=== PATIENT | female | born 1975 | race Caucasian/White ===

== ENCOUNTER 2017-07-10 20:35 | Emergency (ER) | payer BC ==
[2017-07-10 20:42] VITALS: BP 143/69; PULSE 79; RESP 16; TEMP 97.8
--- NOTE | 2017-07-10 21:11 | XR ---
EXAMINATION TYPE: XR foot complete LT DATE OF EXAM: 07/10/2017 CLINICAL HISTORY: Left foot pain worse in the second digit TECHNIQUE: Frontal, lateral, and oblique images of the left foot are obtained. COMPARISON: None FINDINGS: There is no acute fracture/dislocation evident in the left foot. The joint spaces in the left foot appear within normal limits. The overlying soft tissue appears unremarkable. IMPRESSION: There is no acute fracture or dislocation in the left foot.
--- NOTE | 2017-07-10 21:15 | ED ---
General Adult HPI - General Chief complaint: Extremity Injury, Lower Stated complaint: LEFT FOOT INJURY Time Seen by Provider: 07/10/17 20:46 Source: patient, RN notes reviewed Mode of arrival: ambulatory Limitations: no limitations - History of Present Illness Initial comments: 42-year-old female presents to the emergency department for a chief complaint of left foot pain times one week. Patient states she does not remember any injuries but states the second digit of her left foot hurts. Patient denies any history of gout or rheumatoid arthritis. Patient denies any fevers at home. Patient states this has not happened before. Patient has not seen her primary care provider for this. Patient states it is painful to press on. It is also somewhat painful to walk with. Patient has never injured that toe before. Patient has no other complaints at this time including shortness of breath, chest pain, abdominal pain, nausea or vomiting, headache, or visual changes. - Related Data Allergies Allergy/AdvReac Type Severity Reaction Status Date / Time No Known Allergies Allergy Verified 07/10/17 20:42 Review of Systems ROS Statement: Those systems with pertinent positive or pertinent negative responses have been documented in the HPI. ROS Other: All systems not noted in ROS Statement are negative. Past Medical History Past Medical History: No Reported History History of Any Multi-Drug Resistant Organisms: None Reported Additional Past Surgical History / Comment(s): endometrial ablation. left knee arthroscopy. Past Psychological History: No Psychological Hx Reported Smoking Status: Never smoker Past Alcohol Use History: None Reported Past Drug Use History: None Reported General Exam Limitations: no limitations General appearance: alert, in no apparent distress Head exam: Present: atraumatic, normocephalic, normal inspection Respiratory exam: Present: normal lung sounds bilaterally. Absent: respiratory distress, wheezes, rales, rhonchi, stridor Cardiovascular Exam: Present: regular rate, normal rhythm, normal heart sounds. Absent: systolic murmur, diastolic murmur, rubs, gallop, clicks Extremities exam: Present: full ROM (Full range of motion of the left foot and all digits in the left foot), tenderness (Mild tenderness to the second digit of the left foot), normal capillary refill (Refill less than 2 seconds in the left lower extremity and pedal and posterior tibial pulses 2+.), other (Second digit of the left toe does not appear swollen. There is no ecchymosis. There is no redness or swelling. No increased warmth. No signs of infection including cellulitic changes, spreading redness, streaking redness. Digit not held in extension. ). Absent: pedal edema, joint swelling Course Vital Signs 07/10/17 20:38 Temperature 97.8 F Pulse Rate 79 Respiratory 16 Rate Blood Pressure 143/69 O2 Sat by Pulse 100 Oximetry Medical Decision Making - Medical Decision Making 42-year-old female presents to the emergency department for a chief complaint of left second toe pain times one week. Patient states she has not had any injuries. She has never injured it before. She wants to make sure it is not broken with an x-ray. She has full range of motion of the toes on exam. She does have mild tenderness to the second digit of the left foot. No signs of infection. No cellulitis or streaking redness. Toe is not held in extension and has full range of motion. X-ray demonstrates no acute fractures or dislocations. Patient will follow-up with primary care in 1-2 days for this problem. She will return if symptoms worsen. She will take Motrin and Tylenol for pain and rest, ice, and elevate the left foot. Disposition Clinical Impression: Foot pain, left Disposition: HOME SELF-CARE Condition: Good Instructions: Arthralgia (ED), RICE Therapy (ED) Additional Instructions: Please take Motrin and Tylenol for pain relief. Please keep foot elevated and try to ice the affected area. Return to the emergency department if symptoms worsen. Otherwise follow-up with primary care provider in one to 2 days. Is patient prescribed a controlled substance at d/c from ED?: No Referrals: Brant Watkins III, MD [Primary Care Provider] - 1-2 days Time of Disposition: 21:49
== END 2017-07-10 21:55 | disposition home or self-care (01) ==
LOC: EC 20:35
DX: M79.672 Pain in left foot (principal)
CPT/HCPCS: 99283

== ENCOUNTER → 2017-12-29 | Outpatient (CLI) | payer BC ==
--- NOTE | 2017-12-30 10:23 | MM ---
Reason for exam: screening (asymptomatic). Last mammogram was performed 2 years and 3 months ago. History: Took hormonal contraceptives for 10 years. Physical Findings: A clinical breast exam by your physician is recommended on an annual basis and results should be correlated with mammographic findings. MG 3D Screening Mammo W/Cad Bilateral CC and MLO view(s) were taken. Prior study comparison: September 18, 2015, left breast MG work up mamm w CAD LT. September 05, 2015, bilateral MG screening mammo w CAD. The breast tissue is heterogeneously dense. This may lower the sensitivity of mammography. No suspicious abnormality on right breast. Left upper outer quadrant posterior depth distortion on 3D. ASSESSMENT: Incomplete: need additional imaging evaluation, BI-RAD 0 RECOMMENDATION: Special view mammogram of the left breast. If lesion persists on supplemental views, image directed ultrasound is recommended. [facility] will attempt to contact patient to return for supplemental views and ultrasound if indicated.
== END | disposition home or self-care (01) ==
LOC: RADMAMWWP 15:33
PROVIDERS: ATTEND Obstetrics & Gynecology
DX: Z12.31 Encounter for screening mammogram for malignant neoplasm of breast (principal)
CPT/HCPCS: 77063; 77067

== ENCOUNTER → 2018-01-16 | Outpatient (CLI) | payer BC ==
--- NOTE | 2018-01-19 07:19 | MM ---
Reason for exam: additional evaluation requested from abnormal screening. Last mammogram was performed 1 month ago. History: Took hormonal contraceptives for 10 years. Taking estrogen for 1 month. Taking other hormone for 1 month. Physical Findings: Nurse Summary: 0.5 x 1cm nodule in the left breast at 1 o'clock (nurse ts). MG 3D Work Up W/Cad LT LM and spot compression MLO view(s) were taken of the left breast. Prior study comparison: December 29, 2017, bilateral MG 3d screening mammo w/cad. September 18, 2015, left breast MG work up mamm w CAD LT. The breast tissue is heterogeneously dense. This may lower the sensitivity of mammography. No distortion persists. These results were verbally communicated with the patient and result sheet given to the patient on 01/16/18. ASSESSMENT: Incomplete: need additional imaging evaluation, BI-RAD 0 RECOMMENDATION: Ultrasound of the left breast. (palpable by nurse)
--- NOTE | 2018-01-19 07:20 | USB ---
Reason for exam: additional evaluation requested from abnormal screening. History: Took hormonal contraceptives for 10 years. Taking estrogen for 1 month. Taking other hormone for 1 month. US Breast Workup Limited LT Left limited breast ultrasound including focal area of concern, retroareolar and axilla demonstrates a 0.6 x 0.3 x 0.5cm cystic simple cyst at 3 o'clock. These results were verbally communicated with the patient and result sheet given to the patient on 01/16/18. ASSESSMENT: Benign, BI-RAD 2 RECOMMENDATION: Return to routine screening mammogram schedule for both breasts.
== END | disposition home or self-care (01) ==
LOC: RADMAMWWP 13:58
PROVIDERS: ATTEND Obstetrics & Gynecology
DX: R92.8 Other abnormal and inconclusive findings on diagnostic imaging of breast (principal)
CPT/HCPCS: 77061; 77065

== ENCOUNTER → 2021-02-16 | Outpatient (CLI) | payer BC ==
--- NOTE | 2021-02-19 13:29 | MM ---
Reason for exam: screening (asymptomatic). Last mammogram was performed 3 years and 1 month ago. History: Took hormonal contraceptives for 10 years. Took estrogen for 1 year 1 month. Taking other hormone for 1 month. Physical Findings: A clinical breast exam by your physician is recommended on an annual basis and results should be correlated with mammographic findings. MG 3D Screening Mammo W/Cad Bilateral CC and MLO view(s) were taken. Prior study comparison: January 16, 2018, left breast MG 3d work up w/cad LT. December 29, 2017, bilateral MG 3d screening mammo w/cad. The breast tissue is heterogeneously dense. This may lower the sensitivity of mammography. Finding: There is a 5 mm indistinct oval mass in the inner quadrant, anterior position of the left breast. There are two masses in the right breast, 4mm middle and and 5mm anterior depth. There is no discrete abnormality. ASSESSMENT: Incomplete: need additional imaging evaluation, BI-RAD 0 RECOMMENDATION: Special view mammogram of both breasts. If lesion persists on supplemental views, image directed ultrasound is recommended. [facility] will attempt to contact patient to return for supplemental views and ultrasound if indicated.
== END | disposition home or self-care (01) ==
LOC: RADMAMWWP 15:59
PROVIDERS: ATTEND Obstetrics & Gynecology
DX: Z12.31 Encounter for screening mammogram for malignant neoplasm of breast (principal)
CPT/HCPCS: 77063; 77067

== ENCOUNTER → 2021-02-27 | Outpatient (CLI) | payer BC ==
--- NOTE | 2021-02-27 12:09 | MM ---
Reason for exam: additional evaluation requested from abnormal screening. Last mammogram was performed less than 1 month ago. History: Took hormonal contraceptives for 10 years. Took estrogen for 1 year 1 month. Taking other hormone for 1 month. Physical Findings: Nurse did not find any significant physical abnormalities on exam. MG 3D Work Up W/Cad [place] Bilateral spot compression CC and LM view(s) were taken. Spot compression MLO view(s) were taken of the left breast. Prior study comparison: February 16, 2021, bilateral MG 3d screening mammo w/cad. January 16, 2018, left breast MG 3d work up w/cad LT. The breast tissue is heterogeneously dense. This may lower the sensitivity of mammography. Right persistent 6mm isodense circumscribed density persists. The posterior density on the right disperses. Left medial anterior nodularity unchanged from 2018 suggest a benign etiology. These results were verbally communicated with the patient and result sheet given to the patient on 02/27/21. ASSESSMENT: Incomplete: need additional imaging evaluation, BI-RAD 0 RECOMMENDATION: Ultrasound of the right breast.
--- NOTE | 2021-02-27 12:11 | USB ---
Reason for exam: additional evaluation requested from abnormal screening. History: Took hormonal contraceptives for 10 years. Took estrogen for 1 year 1 month. Taking other hormone for 1 month. US Breast Workup Limited RT Right limited breast ultrasound including focal area of concern, retroareolar and axilla demonstrates a 0.5 x 0.2 x 0.5cm cystic lesion at the posterior nipple, probable cyst cluster, likely mammographic correlate, 6 month follow up recommended and a 0.3 x 0.1 x 0.3cm cystic lesion at the posterior nipple. These results were verbally communicated with the patient and result sheet given to the patient on 02/27/21. ASSESSMENT: Probably benign, BI-RAD 3 RECOMMENDATION: Follow-up diagnostic mammogram and ultrasound of the right breast in 6 months.
== END | disposition home or self-care (01) ==
LOC: RADMAMWWP 10:14
PROVIDERS: ATTEND Obstetrics & Gynecology
DX: N60.01 Solitary cyst of right breast (principal); N64.89 Other specified disorders of breast
CPT/HCPCS: 77062; 77066

== ENCOUNTER → 2022-09-30 | Outpatient (CLI) | payer BC ==
--- NOTE | 2022-10-01 20:47 | MM ---
Reason for Exam: Screening (asymptomatic). Last mammogram was performed 1 year(s) and 7 month(s) ago. Patient History: Menarche at age 14. First Full-Term at age 30. Late child-bearing (after 30). Estrogen for 1 year, 1 month. Patient used Hormonal Contraceptives for 10 years. Risk Values: Yvette 5 year model risk: 1.1%. NCI Lifetime model risk: 11.6%. Prior Study Comparison: 01/16/2018 Left Diagnostic Mammogram, [facility]. 02/16/2021 Bilateral Screening Mammogram, [facility]. 02/27/2021 Bilateral Diagnostic Mammogram, [facility]. Tissue Density: The breast tissue is heterogeneously dense. This may lower the sensitivity of mammography. Findings: Analyzed By CAD. There is no suspicious group of microcalcifications or new suspicious mass in either breast. Overall Assessment: Negative, BI-RAD 1 Management: Screening Mammogram of both breasts in 1 year. . Patient should continue monthly self-breast exams. A clinical breast exam by your physician is recommended on an annual basis. This exam should not preclude additional follow-up of suspicious palpable abnormalities. Note on Yvette scores and lifetime risk: 1. A Yvette score greater than 3% is considered moderate risk. If this is the case, consider specialist referral to assess eligibility for a risk reducing agent. 2. If overall lifetime risk for the development of breast cancer is 20% or higher, the patient may qualify for future screening with alternating mammogram and breast MRI. Electronically signed and approved by: Sussy Mendoza M.D. Radiologist
== END | disposition home or self-care (01) ==
LOC: RADMAMWWP 15:50
PROVIDERS: ATTEND Obstetrics & Gynecology
DX: Z12.31 Encounter for screening mammogram for malignant neoplasm of breast (principal)
CPT/HCPCS: 77063; 77067

== ENCOUNTER → 2024-03-31 | Outpatient (CLI) | payer BC ==
--- NOTE | 2024-03-31 08:29 | MM ---
Reason for Exam: Screening (asymptomatic). Last mammogram was performed 1 year(s) and 6 month(s) ago. Patient History: Menarche at age 14. First Full-Term at age 30. Late child-bearing (after 30). Estrogen for 1 year, 1 month. Patient used Hormonal Contraceptives for 10 years. Risk Values: Yvette 5 year model risk: 1.2%. NCI Lifetime model risk: 11.3%. Prior Study Comparison: 02/16/2021 Bilateral Screening Mammogram, [facility]. 02/27/2021 Bilateral Diagnostic Mammogram, [facility]. 09/30/2022 Bilateral MG 3D screening mammo w/cad, [facility]. Tissue Density: There are scattered areas of fibroglandular density. Findings: Analyzed By CAD. Right breast: There is no suspicious group of microcalcifications or new suspicious mass. Left breast: There is no suspicious group of microcalcifications or new suspicious mass. Overall Assessment: Negative, BI-RAD 1 Management: Screening Mammogram of both breasts in [address] [facility] will attempt to contact patient to return for supplemental views and ultrasound if indicated. Patient should continue monthly self-breast exams. A clinical breast exam by your physician is recommended on an annual basis. This exam should not preclude additional follow-up of suspicious palpable abnormalities. Note on Yvette scores and lifetime risk: 1. A Yvette score greater than 3% is considered moderate risk. If this is the case, consider specialist referral to assess eligibility for a risk reducing agent. 2. If overall lifetime risk for the development of breast cancer is 20% or higher, the patient may qualify for future screening with alternating mammogram and breast MRI. [facility], , 03/31/2024 8:26 AM. Electronically signed and approved by: Tobin Joseph DO
== END | disposition home or self-care (01) ==
LOC: RADMAMWWP 07:09
PROVIDERS: ATTEND Obstetrics & Gynecology
DX: Z12.31 Encounter for screening mammogram for malignant neoplasm of breast (principal); R92.323 Mammographic fibroglandular density, bilateral breasts
CPT/HCPCS: 77063; 77067